=== PATIENT | male | born 1970 | race Caucasian/White ===

== ENCOUNTER 2017-04-25 00:47 | Emergency (ER) | payer OTHER ==
[~2017-04-25] VITALS: Ht 180.3 cm; Wt 99.8 kg
[2017-04-25] MEDS ORDERED: IV NORMAL SALINE 1,000ML 1,000 ML IV SCH (01:06)
--- NOTE | 2017-04-25 01:14 | PHYS DOC ---
General Chief Complaint: NAUSEA/VOMITING/DIARRHEA Stated Complaint: N/V/D FEVER Time Seen by MD: 00:56 Source: patient Exam Limitations: no limitations Problems: History of Present Illness Initial Comments Pt is 47/M to ED c/o fever and diarrhea. 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 Today pt says he has felt achy tired, he's had nausea no vomitting, no focal abdominal pain complaints, no travel or bad food exposure. He took ibuprofen one hour ago but isn't feeling any better. No blood in stools, appetite intact but he fears PO intake will make his symptoms worse. ED VS: 100.7, 97, 151/90 Follows at [facility] Timing/Duration: 24 hours Severity: severe Modifying Factors: worse with eating, worse with movement, improves with rest Associated Symptoms: diaphoresis, fever/chills, malaise, nausea/vomiting, other Allergies: Coded Allergies: Penicillins (Verified Allergy, Unknown, 04/25/17) Past Medical History Medical History: no pertinent history Surgical History: no surgical history Social History Smoker: non-smoker Alcohol: none Drugs: none Review of Systems Constitutional: see HPI Respiratory: denies cough, denies shortness of breath Cardiovascular: denies chest pain, denies palpitations, denies syncope Gastrointestinal: see HPI Genitourinary: denies dysuria, denies frequency, denies hematuria Musculoskeletal: denies back pain, denies joint swelling Psychiatric/Neurological: denies headache, denies numbness, denies paresthesia Physical Exam General Appearance: WD/WN, mild distress Eyes: bilateral eye normal inspection, bilateral eye PERRL, bilateral eye EOMI Ear, Nose, Throat: hearing grossly normal, normal ENT inspection, normal pharynx Neck: non-tender, supple Respiratory: normal breath sounds, no respiratory distress Cardiovascular: normal peripheral pulses, regular rate, rhythm Gastrointestinal: normal bowel sounds, soft (ND, mild low abdominal TTP no r/g/ mass, negative mcburney/coulter) Back: no CVA tenderness, no vertebral tenderness Extremities: non-tender, normal inspection 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 Acute Abdominal Series: No acute cardiopulmonary process, nonspecific/ nonobstructive bowel gas pattern. Interpreted by Dr Nj. 0201: Pt rechecked, he is now sleeping. When roused I discussed findings, likely viral GE. I discussed d/c home with zofran, dicyclomine, diet/work restriction recommendations. Pt agreeable, will f/u [facility] prn. Departure Time of Disposition: 02:03 Disposition: HOME, SELF-CARE Diagnosis: gastroenteritis, likely viral Condition: GOOD Patient Instructions: Viral Gastroenteritis, [id number] Additional Instructions: Off work 04/25. Rest, no strenuous activity. Clear liquids x 24 hours, then advance diet slowly as tolerated. Aggressive hydration with gatorade water. Rx: zofran odt, dicyclomine Follow up at [facility] in 2 days if not better. Return to ED with new or changing symptoms. RAFY NJ DO Apr 25, 2017 01:14
[2017-04-25] MEDS ORDERED: ACETAMINOPHEN 500 MG TABLET PO ONE ×2 (01:15→01:20)
[2017-04-25] MEDS ORDERED: ONDANSETRON PF 4 MG/2 ML VIAL. IV ONE (01:15)
[2017-04-25] MEDS ORDERED: KETOROLAC 30 MG/ML VIAL. IV ONE (01:15)
[2017-04-25] MEDS ORDERED: FAMOTIDINE 20 MG/2 ML VIAL IVP ONE (01:15)
[2017-04-25] MEDS ORDERED: ONDANSETRON PF 4 MG/2 ML VIAL. ONE (01:20)
[2017-04-25] MEDS ORDERED: IV NORMAL SALINE 1,000ML 1,000 ML ONE (01:20)
[2017-04-25] MEDS ORDERED: KETOROLAC 30 MG/ML VIAL. ONE (01:20)
[2017-04-25] MEDS ORDERED: FAMOTIDINE 20 MG/2 ML VIAL ONE (01:21)
[2017-04-25 01:47] LABS: ALBUMIN 3.9 g/dL (3.4-5.0); ALBUMIN/GLOBULIN RATIO 1.1 (1.0-1.7); CALCIUM 8.8 mg/dL (8.5-10.1); CREATININE 1.1 mg/dL (0.7-1.3); GFR 71.4; POTASSIUM 3.8 mmol/L (3.5-5.1); TOTAL BILIRUBIN 0.7 mg/dL (0.2-1.0); TOTAL PROTEIN 7.4 g/dL (6.4-8.2)
[2017-04-25 01:50] LABS: BASO # 0.1 x10^3/uL (0.0-0.2); BASO % 1 % (0-3); EOS # 0.1 x10^3/uL (0.0-0.7); EOS % 1 % (0-3); HEMATOCRIT 43.4 % (39.0-53.0); HEMOGLOBIN 15.1 g/dL (13.0-17.5); LYMPH % 12 % (24-48); MEAN CORPUSCULAR HEMOGLOBIN 33 pg (25-35); MEAN CORPUSCULAR HGB CONC 35 g/dL (31-37); MEAN CORPUSCULAR VOLUME 93 fL (79-100); MONO # 1.1 x10^3/uL (0.0-1.1); MONO % 7 % (0-9); NEUT # 13.5 x10^3uL (1.8-7.7); NEUT % 80 % (31-73); PLATELET COUNT 164 x10^3/uL (140-400); RED BLOOD COUNT 4.65 x10^6/uL (4.30-5.70); RED CELL DISTRIBUTION WIDTH 12.7 % (11.5-14.5); WHITE BLOOD COUNT 16.9 x10^3/uL (4.0-11.0)
[2017-04-25 01:56] LABS: BACTERIA,URINE 0 /HPF (0-FEW); BILIRUBIN,URINE NEG (NEG); CLARITY,URINE CLEAR; COLOR,URINE YELLOW; GLUCOSE,URINE NEG (NEG); NITRITE,URINE NEG (NEG); RBC,URINE 0 /HPF (0-2); SQUAMOUS EPITHELIAL CELL,UR OCC /LPF; UROBILINOGEN,URINE 1 mg/dL (0.2 mg/dL); WBC,URINE OCC /HPF (0-4)
[2017-04-25 02:00] VITALS: BP 153/91
[2017-04-25 02:12] LABS: % BANDS 8 % (0-9); % LYMPHS 12 % (24-48); % MONOS 1 % (0-10); % SEGS 79 % (35-66)
[2017-04-25 02:13] LABS: PLT ESTIMATE ADEQUATE (ADEQUATE)
[2017-04-25] MEDS ORDERED: ONDANSETRON 4MG ODT 4TABLET STARTPACK. PO ONE ×2 (02:15→02:25)
--- NOTE | 2017-04-25 08:39 | RAD ---
INDICATION: abdominal pain COMPARISON: None. IMPRESSION: 3 views of chest and abdomen obtained. No definite focal airspace consolidation to suggest pneumonia. No intraperitoneal free air. Moderate stool within the colon. Air scattered throughout large and small bowel in a nonspecific pattern.
== END 2017-04-25 02:40 | disposition home or self-care (01) ==
LOC: ER 00:47
DX: K52.9 Noninfective gastroenteritis and colitis, unspecified (principal); Z88.0 Allergy status to penicillin
CPT/HCPCS: 36415; 74022; 80053; 81001; 83690; 85007; 85027; 96361; 96374; 96375; 99285; J1885; J2405; S0028; J7030

== ENCOUNTER 2017-04-25 14:23 | Emergency (ER) | payer OTHER ==
[~2017-04-25] VITALS: Ht 180.3 cm; Wt 99.8 kg
[2017-04-25] MEDS ORDERED: ACETAMINOPHEN 500 MG TABLET PO ONE ×2 (14:38→15:00)
[2017-04-25] MEDS ORDERED: IV NORMAL SALINE 1,000ML 1,000 ML ONE (14:38)
[2017-04-25] MEDS ORDERED: IV NORMAL SALINE 1,000ML 1,000 ML IV ONE (15:00)
[2017-04-25] MEDS ORDERED: IOHEXOL 240 MG/ML 50ML VIAL. ONE (15:20)
[2017-04-25] MEDS ORDERED: IOHEXOL 300 MG/ML 75 ML VIAL. IV ONE (16:30)
[2017-04-25] MEDS ORDERED: CONTRAST GIVEN MC PRN (16:30)
--- NOTE | 2017-04-25 17:10 | RAD ---
INDICATION: Abdominal pain and nausea COMPARISON: None. TECHNIQUE: Axial CT images were obtained through the abdomen and pelvis with intravenous contrast. Coronal reformations were processed. FINDINGS: Abdomen: Chest Base: Mild linear opacity left lower lung, could be atelectasis. Vessels: Mild calcific atherosclerosis. Liver/Biliary: Low-attenuation. Pancreas: No peripancreatic edema. 2 mm low density region is seen within the proximal pancreatic body. Spleen: Normal. Kidneys/Adrenal: No hydronephrosis. GI: The appendix does not appear inflamed. No dilated loops of bowel to suggest obstruction. Small fat-containing umbilical hernia. 33 mm lucent region at left acetabulum. Degenerative changes the spine are identified. Pelvis: Bladder: Partially distended without gross abnormality. IMPRESSION: 1. No evidence of bowel obstruction or appendicitis. 2. Liver is low attenuation. Nonspecific but can be seen with fatty infiltration. 3. Tiny low-attenuation focus is seen within the pancreas. Would consider obtaining a follow-up pancreatic protocol MRI to further evaluate. Some differential considerations include focal fat within the pancreas as well as a small cystic lesion such as intraductal papillary mucinous neoplasm or tiny pseudocyst but a tiny solid lesion is not excluded. 4. Lucent lesion in the left acetabular region. This has a nonspecific appearance but can be seen with causes such as a bone cyst or intraosseous lipoma but other more worrisome causes are not excluded on this examination. If more accurate evaluation is desired MRI could be obtained of the left hip with and without intravenous contrast. PQRS Compliance Statement: One or more of the following individualized dose reduction techniques were utilized for this examination: 1. Automated exposure control 2. Adjustment of the mA and/or kV according to patient size 3. Use of iterative reconstruction technique
[2017-04-25] MEDS ORDERED: IV NORMAL SALINE 500ML 500 ML IV ONE (17:20)
--- NOTE | 2017-04-25 18:00 | PHYS DOC ---
Past History Past Medical History: Kidney Infection Past Surgical History: Tonsillectomy Alcohol Use: None Drug Use: None Adult General Chief Complaint Chief Complaint: NAUSEA/VOMITING/DIARRHEA HPI HPI Patient is a 47 year old M who presents with nausea/vomiting and diarrhea with mild dull lower abdominal pain that seems to be worse with movement or palpation. He also feels that his symptoms are worse with eating. He was seen in the ED today with similar symptoms. He states that he returned because he felt he was more dehydrated Review of Systems Review of Systems Constitutional: fever or chills Eyes: Denies change in visual acuity, redness, or eye pain [] HENT: Denies nasal congestion or sore throat [] Respiratory: Denies cough or shortness of breath [] Cardiovascular: No additional information not addressed in HPI [] GI: negative except HPI : Denies dysuria or hematuria [] Musculoskeletal: Denies back pain or joint pain [] Integument: Denies rash or skin lesions [] Neurologic: Denies headache, focal weakness or sensory changes [] Endocrine: Denies polyuria or polydipsia [] Family History Family History non contributory Current Medications Current Medications Current Medications Medications (Trade) Dose Ordered Sig/Selena Start Time Stop Time Status Last Admin Dose Admin Acetaminophen (Tylenol) 1,000 mg 1X ONCE 04/25/17 15:00 04/25/17 15:01 DC 04/25/17 14:49 1,000 MG Info (Do NOT chart on this entry -- for MONITORING) 1 each PRN DAILY PRN 04/25/17 16:30 04/27/17 16:29 Iohexol (Omnipaque 240 Mg/ml) 50 ml STK-MED ONCE 04/25/17 15:20 04/25/17 15:21 DC Iohexol (Omnipaque 300 Mg/ml) 75 ml 1X ONCE 04/25/17 16:30 04/25/17 16:31 DC 04/25/17 16:28 75 ML Sodium Chloride 500 ml @ 0 mls/hr 1X ONCE 04/25/17 17:20 04/25/17 17:22 DC 04/25/17 17:21 500 MLS/HR Allergies Allergies Coded Allergies Type Severity Reaction Last Updated Verified Penicillins Allergy Unknown 04/25/17 Yes Physical Exam Physical Exam Constitutional: Well developed, well nourished, no acute distress, non-toxic appearance. [] HENT: Normocephalic, atraumatic, bilateral external ears normal, oropharynx moist, no oral exudates, Nasal congestion bilaterally Eyes: PERRLA, EOMI, conjunctiva normal, no discharge. [] Neck: Normal range of motion, no tenderness, supple, no stridor. [] Cardiovascular:Heart rate regular rhythm, no murmur [] Lungs & Thorax: Bilateral breath sounds clear to auscultation [] Abdomen: Bowel sounds normal, soft, no masses, no pulsatile masses. [] Mild generalized TTP Skin: Warm, dry, no erythema, no rash. [] Back: No tenderness, no CVA tenderness. [] Extremities: No tenderness, no cyanosis, no clubbing, ROM intact, no edema. [] Neurologic: Alert and oriented X 3, normal motor function, normal sensory function, no focal deficits noted. [] Psychologic: Affect normal, judgement normal, mood normal. [] Current Patient Data Vital Signs Vital Signs Date Time Temp Pulse Resp B/P (MAP) Pulse Ox O2 Delivery O2 Flow Rate FiO2 04/25/17 17:20 78 18 121/60 (80) 96 04/25/17 16:49 99.6 04/25/17 14:23 Room Air Lab Results Labs from last night were reviewed Radiology/Procedures Radiology/Procedures No acute disease. He was advised that there was a cyst on the Pancrease as well as a lesion on the L hip. He was advised to follow up with his primary care doctor in the next 1-2 weeks for further management Course & Med Decision Making Course & Med Decision Making Pertinent Labs and Imaging studies reviewed. (See chart for details) Jose Martin's symptoms improved with IV fluids and tylenol. He was offered admission which he declined Dragon Disclaimer Dragon Disclaimer This chart was dictated in whole or in part using Voice Recognition software in a busy, high-work load, and often noisy Emergency Department environment. It may contain unintended and wholly unrecognized errors or omissions. Departure Departure: Impression: Primary Impression: Viral gastroenteritis Additional Impression: Viral syndrome Disposition: 01 HOME, SELF-CARE Condition: IMPROVED Referrals: KIERSTEN DANIELLE DO (PCP) Patient Instructions: Viral Gastroenteritis Additional Instructions: Jose Martin was seen in the ED for nausea and vomiting. No emergency medical condition was found during the history and physical exam. He did have a normal CT with the exception of finding a cyst on his pancreas and a lesion on the left hip. Both are likely benign however he was advised to follow-up with his primary care doctor in the next 1-2 weeks for further management. Problem Qualifiers JUSTIN ROBERTSON MD Apr 25, 2017 18:00
[2017-04-25 18:25] VITALS: BP 112/67
== END 2017-04-25 18:25 | disposition home or self-care (01) ==
LOC: ER 14:23
DX: A08.4 Viral intestinal infection, unspecified (principal); Z88.0 Allergy status to penicillin
CPT/HCPCS: 74177; 96360; 96361; 99285; J7040; Q9967; J7030